=== PATIENT | male | born 1980 | race Caucasian/White ===

== ENCOUNTER 2023-12-27 19:49 | Emergency (ER) | payer MEDICAID ==
[~2023-12-27] VITALS: Ht 180.3 cm; Wt 134.1 kg
[2023-12-27 20:15] VITALS: BP 141/98; PULSE 115; RESP 18; TEMP 98.2; O2SAT 99
[2023-12-27] MEDS ORDERED: TOPI200T PO (20:46)
[2023-12-27] MEDS ORDERED: GABA800T11 PO (20:46)
[2023-12-27] MEDS ORDERED: PANT-47 PO (20:46)
[2023-12-27] MEDS ORDERED: METH-350 PO (20:46)
[2023-12-27] MEDS ORDERED: BENZ1TAB78 PO (20:46)
[2023-12-27] MEDS ORDERED: HALO5TAB PO (20:46)
[2023-12-27] MEDS ORDERED: QUET100T34 PO (20:46)
== END 2023-12-27 21:04 | disposition home or self-care (01) ==
LOC: ER 19:52
DX: F20.9 Schizophrenia, unspecified (principal); Z76.0 Encounter for issue of repeat prescription; Z88.8 Allergy status to other drugs, medicaments and biological substances
CPT/HCPCS: 99281